=== PATIENT | male | born 1980 | race Caucasian/White ===

== ENCOUNTER 2017-03-31 07:53 | Emergency (ER) | payer SELFPAY ==
[2017-03-31 08:07] VITALS: BP 125/71; BMI 25.7
--- NOTE | 2017-03-31 08:28 | DR.LACERAT ---
HPI - Time Seen Time seen: 08:10 - Primary Care Physician Primary Care Physician: PENG - HPI Comment HPI Comment: HISTORY BELOW. - Complaints Chief Complaint Doctors Comments: STOOD UP, WAS DIZZY AND FEEL AT [facility] 05:00 AM TODAY. HEMATOMA AND 3CM LACERATION PRESENT AT THE BACK OF HIS HEAD. PATIEN HAD LOC. NO FEVER. FULLY ALERT IN ED. HAVING HEADACHE. Chief Complaint:: LACERATION TO BACK OF HEAD. HAPPENED APPROX 5AM THIS MORNING. LACERATION IS APPROX [id number] WITH LG HEMATOMA TO BACK OF HEAD - Reviewed Nurses Notes Reviewed: Yes - Source History Provided: Patient - Mode of Arrival Mode of Arrival: Ambulatory - Timing Onset of Chief Complaint: 03/31/17 PMH - PMH Past Medical History: Yes Past Medical History: Migraines Past Surgical History: Yes Past Surgical History Comment: HERNIA REPAIR 2004 - Family History History of Family Medical Conditions: No - Social History Does patient currently use any type of tobacco product: No Have you used tobacco products in the last 12 months: No Type of Tobacco Use: None Does any household member use tobacco: No Alcohol Use: None Do you use any recreational Drugs:: No Lives With: Other - infectious screening In the last 2 months have you had wt loss of >10#?: NO Have you traveled outside the country in the last 6 months?: No Isolation: Standard ROS - Review of Systems Constitutional: No Symptoms Reported Eyes: No Symptoms Reported. negative: Eye Pain, Discharge ENTM: No Symptoms Reported. negative: Ear Pain, Nose Discharge, Nose Congestion , Throat Pain Respiratoy: No Symptoms Reported. negative: Productive Cough, Non-Productive Cough, Short of Breath, Wheezing, Hemoptysis Cardiovascular: No Symptoms Reported Gastrointestinal/Abdominal: No Symptoms Reported Genitourinary: No Symptoms Reported. negative: Dysuria, Frequency, Hematuria Neurological: Dizziness (BEFORE FALL. NONE CURRENTLY.) Musculoskeletal: No Symptoms Reported Integumentary: Change in Color, Wound (SCALP LAC OVER HEMATOMA IN THE BACK OF HEAD.) Hematologic/Lymphatic: No Symptoms Reported Endocrine: No Symptoms Reported All Other Systems: Reviewed and Negative PE - Vital Signs Vitals: Temperature 99.0 F Pulse Rate 78 Respiratory Rate 20 Blood Pressure 125/71 O2 Sat by Pulse Oximetry 98 - General Limitations: No Limitations General Appearance: Alert - Head Head Exam: Other (HEMATOMA AND LAC BACK OF HEAD.) - Eyes Eye exam: PERRL, EOMI. negative: Scleral Icterus, Conjunctival Injection, Periorbital Swelling, Periorbital Tenderness - ENT ENT Exam: Normal Oropharynx, Normal External Ear Exam, Mucous Membranes Moist, TM's Normal Bilaterally - Neck Neck Exam: Trachea Midline. negative: Tenderness, Meningismus, Lymphadenopathy - Chest Chest Inspection: Symmetric Chest Wall Rise - Respiratory Respiratory Exam: Normal Lung Sounds Bilat Respiratory Exam: Bilateral Clear to Auscultation - Cardiovascular Cardiovascular Exam: Regular Rate, Normal Rhythm, Normal Heart Sounds - Abdominal Exam Abdominal Exam: Normal Bowel Sounds, Soft. negative: Tenderness - Extremities Extremities Exam: Normal Inspection - Back Back Exam: Normal Inspection - Neurologic Neurological Exam: Alert, Oriented X3, CN II-XII Intact, Reflexes Normal. negative: Motor Sensory Deficit - Psychiatric Psychiatric Exam: Normal Affect, Normal Mood - Skin Skin Exam: Erythema Type of Lesion: Laceration (3CM BACK OF SCALP.) MDM - Differential Diagnosis Differential Diagnosis: Contusion, Laceration, Fracture, Hematoma Differential Diagnosis Comment: CLOSE HEAD INJURY Course - Treatment Treatment: SEE ORDERS. LAC CLOSE IN ED WITH STAPLE. - Education/Counseling Education/Counseling: Patient, Education Educated On: Treatment, Diagnosis, Needs for Follow Up ROR - Labs Reviewed Laboratory Results Reviewed?: Yes Result Diagrams: 03/31/17 08:44 03/31/17 08:44 Laboratory: WBC 12.9 X10^3/uL (3.6-10.0) H 03/31/17 08:44 RBC 5.12 X10^6/uL (4.7-6.0) 03/31/17 08:44 Hgb 15.0 g/dL (13.5-18.0) 03/31/17 08:44 Hct 43.4 % (42.0-54.0) 03/31/17 08:44 MCV 84.8 fL (80.0-100.0) 03/31/17 08:44 MCH 29.3 pg (27.0-34.0) 03/31/17 08:44 MCHC 34.6 g/dL (33.0-35.0) 03/31/17 08:44 RDW 14.8 % (11.6-16.5) 03/31/17 08:44 Plt Count 221 X10^3/uL (150.0-450.0) 03/31/17 08:44 MPV 7.6 fL (7.4-11.0) 03/31/17 08:44 Neut % 79.1 % (42.0-75.0) H 03/31/17 08:44 Lymph % 13.2 % (21.0-51.0) L 03/31/17 08:44 Teller % 6.8 % (0.0-13.0) 03/31/17 08:44 Eos % 0.4 % (0.9-2.9) L 03/31/17 08:44 Baso % 0.5 % (0.2-1.0) 03/31/17 08:44 Neut # 10.2 x10^3/uL (2.2-4.8) H 03/31/17 08:44 Lymph # 1.7 X10^3/uL (1.3-2.9) 03/31/17 08:44 Teller # 0.9 x10^3/uL (0.3-0.8) H 03/31/17 08:44 Eos # 0.1 x10^3/uL (0.0-0.2) 03/31/17 08:44 Baso # 0.1 X10^3/uL (0.0-0.1) 03/31/17 08:44 Absolute Nucleated RBC 0.1 /100WBC 03/31/17 08:44 Sodium 142 mmol/L (136-145) 03/31/17 08:44 Corrected Sodium TNP 03/31/17 08:44 Potassium 3.6 mmol/L (3.5-5.1) 03/31/17 08:44 Chloride 104 mmol/L (98-107) 03/31/17 08:44 Carbon Dioxide 28.4 mmol/L (21-32) 03/31/17 08:44 BUN 8 mg/dL (7-18) 03/31/17 08:44 Creatinine 0.82 mg/dL (0.70-1.30) 03/31/17 08:44 Est GFR (MDRD) Af Amer > 60 (>60) 03/31/17 08:44 Est GFR (MDRD) Non-Af > 60 (>60) 03/31/17 08:44 Glucose 94 mg/dL (65-99) 03/31/17 08:44 Calcium 9.5 mg/dL (8.5-10.1) 03/31/17 08:44 Corrected Calcium TNP 03/31/17 08:44 Total Bilirubin 1.00 mg/dL (0.2-1.0) 03/31/17 08:44 AST 138 Units/L (15-37) H 03/31/17 08:44 ALT 556 Units/L (12-78) H 03/31/17 08:44 Alkaline Phosphatase 68 Units/L (46-116) 03/31/17 08:44 Total Protein 7.5 g/dL (6.4-8.2) 03/31/17 08:44 Albumin 4.3 g/dL (3.4-5.0) 03/31/17 08:44 Globulin 3.2 g/dL (2.5-4.5) 03/31/17 08:44 Albumin/Globulin Ratio 1.3 Ratio (1.1-2.1) 03/31/17 08:44 - XRAY XRAY Interpreted by: Radiologist XRAY Findings: REPORT DISCUSS WITH PATIENT. - Diagnosis Discharge Problem: Traumatic hematoma of scalp Qualifiers: Encounter type: initial encounter Qualified Code(s): S00.03XA - Contusion of scalp, initial encounter Laceration of occipital scalp Qualifiers: Encounter type: initial encounter Qualified Code(s): S01.01XA - Laceration without foreign body of scalp, initial encounter Scalp contusion Qualifiers: Encounter type: initial encounter Qualified Code(s): S00.03XA - Contusion of scalp, initial encounter - Discharge Plan Disposition: 01 HOME, SELF-CARE Condition: Stable Prescriptions: Cephalexin [KEFLEX CAP 500 MG *] 500 mg PO TID #21 cap Ibuprofen [MOTRIN TAB 800 MG *] 800 mg PO BID PRN #20 tab PRN Reason: Pain/Inflammation - Follow ups/Referrals Follow ups/Referrals: NFD,None [Primary Care Provider] - 3 days - Instructions Instructions: Laceration Care, Adult, [id number], Hematoma Additional Instructions: RETURN TO ED IF WORSE. NICHOLE OUT IN 10 DAYS
[2017-03-31 08:50] LABS: BASOPHILS # (AUTO) 0.1 X10^3/uL (0.0-0.1); BASOPHILS % (AUTO) 0.5 % (0.2-1.0); EOSINOPHILS # (AUTO) 0.1 x10^3/uL (0.0-0.2); EOSINOPHILS % (AUTO) 0.4 % (0.9-2.9); HEMATOCRIT 43.4 % (42.0-54.0); LYMPHOCYTES # (AUTO) 1.7 X10^3/uL (1.3-2.9); LYMPHOCYTES % (AUTO) 13.2 % (21.0-51.0); MEAN CORPUSCULAR HEMOGLOBIN 29.3 pg (27.0-34.0); MEAN CORPUSCULAR HGB CONC 34.6 g/dL (33.0-35.0); MEAN CORPUSCULAR VOLUME 84.8 fL (80.0-100.0); MEAN PLATELET VOLUME 7.6 fL (7.4-11.0); MONOCYTES # (AUTO) 0.9 x10^3/uL (0.3-0.8); MONOCYTES % (AUTO) 6.8 % (0.0-13.0); NEUTROPHILS # (AUTO) 10.2 x10^3/uL (2.2-4.8); NEUTROPHILS % (AUTO) 79.1 % (42.0-75.0); PLATELET COUNT 221 X10^3/uL (150.0-450.0); RED BLOOD COUNT 5.12 X10^6/uL (4.7-6.0); RED CELL DISTRIBUTION WIDTH 14.8 % (11.6-16.5); WHITE BLOOD COUNT 12.9 X10^3/uL (3.6-10.0)
[2017-03-31] MEDS ORDERED: TORADOL 60 MG VIAL IM ONE (08:56)
[2017-03-31 09:00] LABS: ALANINE AMINOTRANSFERASE 556 Units/L (12-78); ALBUMIN 4.3 g/dL (3.4-5.0); ALKALINE PHOSPHATASE 68 Units/L (46-116); ASPARTATE AMINO TRANSFERASE 138 Units/L (15-37); BLOOD UREA NITROGEN 8 mg/dL (7-18); CALCIUM 9.5 mg/dL (8.5-10.1); CARBON DIOXIDE 28.4 mmol/L (21-32); CHLORIDE 104 mmol/L (98-107); CREATININE 0.82 mg/dL (0.70-1.30); SODIUM 142 mmol/L (136-145); TOTAL PROTEIN 7.5 g/dL (6.4-8.2); eGFR BLACK RACES > 60 (>60); eGFR NON BLACK RACES > 60 (>60)
[2017-03-31] MEDS ORDERED: TORADOL 60 MG VIAL ONE (09:07)
--- NOTE | 2017-03-31 09:27 | CT ---
History: Fall with laceration back of head Study: CT head without contrast. Sagittal and coronal reformations were provided. Comparison: None Findings: There is a subcutaneous hematoma posteriorly on the left. There is no skull fracture or dep ression. The ventricles and sulci are normal in size and configuration. There is no intracranial hemo rrhage or mass or edema or subdural collection of fluid. The paranasal sinuses are clear. Impression: Large left posterior subcutaneous hematoma. No evidence for intracranial disease. Reported By:
[2017-03-31] MEDS ORDERED: XYLOCAINE 1 % (PLAIN) ONE (10:21)
[2017-03-31] MEDS ORDERED: HYDROGEN PEROXIDE 3% ONE (10:26)
[2017-03-31] MEDS ORDERED: MORPHINE SULFATE INJ 4 MG IM ONE (10:48)
[2017-03-31] MEDS ORDERED: ZOFRAN INJ 4 MG VIAL IM ONE (10:48)
[2017-03-31] MEDS ORDERED: ZOFRAN INJ 4 MG VIAL ONE (10:51)
[2017-03-31] MEDS ORDERED: MORPHINE SULFATE INJ 4 MG ONE (10:52)
== END 2017-03-31 11:04 | disposition home or self-care (01) ==
LOC: ER 08:02
PROC: 0WQ00ZZ Repair Head, Open Approach (ICD-10-PCS; principal; 2017-03-31)
DX: S01.01XA Laceration without foreign body of scalp, initial encounter (principal); S00.03XA Contusion of scalp, initial encounter; W19.XXXA Unspecified fall, initial encounter; Y92.89 Other specified places as the place of occurrence of the external cause
CPT/HCPCS: 12002; 36415; 70450; 80053; 85025; 96372; 99282; 99283; J1885; J2001; J2270; J2405